=== PATIENT | female | born 1960 | race American Indian/Alaskan Native ===

== ENCOUNTER 2017-11-08 11:00 | Emergency (ER) | payer MEDICARE, MEDICAID ==
[~2017-11-08] VITALS: Ht 162.6 cm; Wt 71.9 kg
[~2017-11-08 11:00] MED LIST: ATOR40TA3 PO; DEXLANT; DOCU-264 PO; GABA-532 PO; LANTUS SUBCUT; RIVA20TA PO
[2017-11-08 11:12] VITALS: BP 115/86
== END 2017-11-08 13:15 | disposition left against medical advice (07) ==
LOC: ER 11:00
DX: R79.9 Abnormal finding of blood chemistry, unspecified (principal); Z53.21 Procedure and treatment not carried out due to patient leaving prior to being seen by health care provider

== ENCOUNTER 2018-09-20 15:13 | Emergency (ER) | payer MEDICARE, MEDICAID ==
[~2018-09-20] VITALS: Ht 160 cm; Wt 72.7 kg
[2018-09-20] MEDS ORDERED: HYDROcodone/acetaminophen 5mg/325mg tablet PO ONE (15:25)
[2018-09-20 16:20] VITALS: BP 146/70
[2018-09-20] MEDS ORDERED: CYCL-1 PO (16:25)
[2018-09-20] MEDS ORDERED: ACET-3067 PO (16:25)
--- NOTE | 2018-09-20 16:30 | NUR ---
Trauma cleared by Dr. Oseguera.
== END 2018-09-20 16:40 | disposition home or self-care (01) ==
LOC: ER 15:14
DX: S13.4XXA Sprain of ligaments of cervical spine, initial encounter (principal); S60.221A Contusion of right hand, initial encounter; S00.81XA Abrasion of other part of head, initial encounter; I25.10 Atherosclerotic heart disease of native coronary artery without angina pectoris; E78.00 Pure hypercholesterolemia, unspecified; K21.9 Gastro-esophageal reflux disease without esophagitis; E11.42 Type 2 diabetes mellitus with diabetic polyneuropathy; I12.9 Hypertensive chronic kidney disease with stage 1 through stage 4 chronic kidney disease, or unspecified chronic kidney disease; E11.22 Type 2 diabetes mellitus with diabetic chronic kidney disease; N18.9 Chronic kidney disease, unspecified; Z86.718 Personal history of other venous thrombosis and embolism; Z56.0 Unemployment, unspecified; Z90.49 Acquired absence of other specified parts of digestive tract; Z95.1 Presence of aortocoronary bypass graft; Z90.710 Acquired absence of both cervix and uterus; Z79.899 Other long term (current) drug therapy; Z79.4 Long term (current) use of insulin; Z79.01 Long term (current) use of anticoagulants; W18.49XA Other slipping, tripping and stumbling without falling, initial encounter; Y93.89 Activity, other specified; Y92.89 Other specified places as the place of occurrence of the external cause; Y99.9 Unspecified external cause status
CPT/HCPCS: 70450; 70486; 72125; 73130; 82948; 99284

== ENCOUNTER 2018-11-03 14:57 | Emergency (ER) | payer MEDICARE, MEDICAID ==
[~2018-11-03] VITALS: Ht 162.6 cm; Wt 72.0 kg
[~2018-11-03 14:57] MED LIST changes: -ATOR40TA3 PO; +ATOR40TA7 PO; +CYCL-1 PO
[2018-11-03 15:45] LABS: BASOPHILS % (AUTO) 0.3 % (0-1); EOSINOPHILS # (AUTO) 0.1 X10'3 (0-0.9); EOSINOPHILS % (AUTO) 1.6 % (0-6); HEMATOCRIT 34.3 % (35.0-45.0); HEMOGLOBIN 11.9 g/dl (12.0-16.0); LYMPHOCYTES # (AUTO) 1.3 X10'3 (1.1-4.8); LYMPHOCYTES % (AUTO) 14.7 % (21-51); MEAN CORPUSCULAR HEMOGLOBIN 32.5 PG (27.0-31.0); MEAN CORPUSCULAR HGB CONC 34.8 g/dL (33.0-36.5); MEAN CORPUSCULAR VOLUME 93.3 FL (78-98); MEAN PLATELET VOLUME 7.1 FL (7.4-10.4); MONOCYTES # (AUTO) 0.4 X10'3 (0-0.9); MONOCYTES % (AUTO) 4.5 % (2-12); NEUTROPHILS # (AUTO) 6.9 X10'3 (1.8-7.7); NEUTROPHILS % (AUTO) 78.9 % (42-75); PLATELET COUNT 209 X10'3 (140-440); RED BLOOD COUNT 3.68 X10'6 (4.20-5.60); RED CELL DISTRIBUTION WIDTH 14.3 % (11.5-14.5); WHITE BLOOD COUNT 8.8 X10'3 (4.5-11.0)
[2018-11-03 15:59] LABS: ALANINE AMINOTRANSFERASE 27 U/L (12-78); ALBUMIN 3.5 G/DL (3.4-5.0); ALKALINE PHOSPHATASE 90 IU/L (46-116); ANION GAP 5 (8-16); ASPARTATE AMINO TRANSFERASE 17 U/L (10-37); BILIRUBIN,TOTAL 0.2 MG/DL (0.1-1.0); BLOOD UREA NITROGEN 25 MG/DL (7-18); BUN/CREATININE RATIO 21.2 (6.6-38.0); CALCIUM 9.2 MG/DL (8.5-10.1); CHLORIDE 104 MMOL/L (99-107); CREATININE 1.18 MG/DL (0.40-0.90); GLUCOSE 234 MG/DL (70-104); POTASSIUM 3.7 MMOL/L (3.5-5.1); SODIUM 138 MMOL/L (135-145); TOTAL CARBON DIOXIDE 29.5 MMOL/L (24-32); TOTAL PROTEIN 6.9 G/DL (6.4-8.2); eGFR 47 ML/MIN
[2018-11-03] MEDS ORDERED: normal saline 1000ML IV soln IVB ONE (16:10)
[2018-11-03 16:12] LABS: PARTIAL THROMBOPLASTIN TIME 30 SECONDS (22-32)
[2018-11-03 17:07] LABS: CLARITY,URINE CLEAR (Clear); COLOR,URINE YELLOW (Yellow); GLUCOSE, URINE NEGATIVE (Neg); KETONES,URINE TRACE mg/dl (Neg); LEUKOCYTE ESTERASE ,URINE NEGATIVE (Neg); NITRITES, URINE NEGATIVE (Neg); OCCULT BLOOD,URINE NEGATIVE (Neg); PROTEIN,URINE TRACE mg/dl (Neg); UROBILINOGEN,URINE 0.2 E.U/dL (0.2-1.0)
[2018-11-03 17:10] LABS: UA COLLECTION TYPE CLN CATCH MIDSTREAM
[2018-11-03 17:15] LABS: BACTERIA,URINE FEW /HPF (Neg); MUCUS STRANDS MODERATE /LPF (Neg); RBC,URINE NONE SEEN /HPF (0-2); SQUAMOUS EPITHELIAL CELL,UR FEW /LPF (FEW); WBC,URINE 0-4 /HPF (0-4)
--- NOTE | 2018-11-03 18:05 | NUR ---
Pt ambulated around ED with no c/o MD leidy aware. Pt states feels good -better than she did prior to arrival and ready to go home
[2018-11-03 18:18] VITALS: BP 154/63
== END 2018-11-03 18:20 | disposition home or self-care (01) ==
LOC: ER 14:58
DX: R42 Dizziness and giddiness (principal); R53.1 Weakness; I12.9 Hypertensive chronic kidney disease with stage 1 through stage 4 chronic kidney disease, or unspecified chronic kidney disease; E11.22 Type 2 diabetes mellitus with diabetic chronic kidney disease; N18.9 Chronic kidney disease, unspecified; E11.40 Type 2 diabetes mellitus with diabetic neuropathy, unspecified; I25.10 Atherosclerotic heart disease of native coronary artery without angina pectoris; E78.00 Pure hypercholesterolemia, unspecified; K21.9 Gastro-esophageal reflux disease without esophagitis; Z79.4 Long term (current) use of insulin; Z86.718 Personal history of other venous thrombosis and embolism; Z90.49 Acquired absence of other specified parts of digestive tract; Z95.1 Presence of aortocoronary bypass graft; Z90.710 Acquired absence of both cervix and uterus; Z56.0 Unemployment, unspecified
CPT/HCPCS: 36415; 71045; 80053; 81001; 84484; 85025; 85610; 85730; 93005; 96360; 99284; J7030

== ENCOUNTER 2019-06-15 16:15 | Emergency (ER) | payer MEDICARE, MEDICAID ==
[~2019-06-15] VITALS: Ht 165.1 cm; Wt 89.8 kg
[2019-06-15 17:00] VITALS: BP 156/86
[2019-06-15] MEDS ORDERED: acetaminophen 325mg tablet PO ONE (17:05)
== END 2019-06-15 17:22 | disposition home or self-care (01) ==
LOC: ER 16:16
DX: S00.03XA Contusion of scalp, initial encounter (principal); I25.10 Atherosclerotic heart disease of native coronary artery without angina pectoris; E78.00 Pure hypercholesterolemia, unspecified; K21.9 Gastro-esophageal reflux disease without esophagitis; I12.9 Hypertensive chronic kidney disease with stage 1 through stage 4 chronic kidney disease, or unspecified chronic kidney disease; E11.22 Type 2 diabetes mellitus with diabetic chronic kidney disease; N18.9 Chronic kidney disease, unspecified; E11.42 Type 2 diabetes mellitus with diabetic polyneuropathy; Z56.0 Unemployment, unspecified; Z90.49 Acquired absence of other specified parts of digestive tract; Z95.1 Presence of aortocoronary bypass graft; Z90.710 Acquired absence of both cervix and uterus; Z98.890 Other specified postprocedural states; Z86.718 Personal history of other venous thrombosis and embolism; Z79.899 Other long term (current) drug therapy; Z79.4 Long term (current) use of insulin; Z79.01 Long term (current) use of anticoagulants; W01.198A Fall on same level from slipping, tripping and stumbling with subsequent striking against other object, initial encounter; Y93.89 Activity, other specified; Y92.89 Other specified places as the place of occurrence of the external cause; Y99.9 Unspecified external cause status
CPT/HCPCS: 70450; 72125; 93005; 99284

== ENCOUNTER 2019-06-23 18:08 | Emergency (ER) | payer MEDICARE, MEDICAID ==
[~2019-06-23] VITALS: Ht 165.1 cm; Wt 77.0 kg
[2019-06-23] MEDS ORDERED: ondansetron 4mg rapidly disintigrating tab PO ONE (19:00)
[2019-06-23] MEDS ORDERED: HYDROcodone/acetaminophen 5mg/325mg tablet PO ONE (19:00)
[2019-06-23] MEDS ORDERED: acetaminophen 325mg tablet PO ONE (19:00)
[2019-06-23 20:05] VITALS: BP 147/78
== END 2019-06-23 20:10 | disposition home or self-care (01) ==
LOC: ER 18:09
DX: M25.572 Pain in left ankle and joints of left foot (principal); M25.512 Pain in left shoulder; R20.0 Anesthesia of skin; I25.10 Atherosclerotic heart disease of native coronary artery without angina pectoris; E78.00 Pure hypercholesterolemia, unspecified; K21.9 Gastro-esophageal reflux disease without esophagitis; E11.42 Type 2 diabetes mellitus with diabetic polyneuropathy; I12.9 Hypertensive chronic kidney disease with stage 1 through stage 4 chronic kidney disease, or unspecified chronic kidney disease; E11.22 Type 2 diabetes mellitus with diabetic chronic kidney disease; N18.9 Chronic kidney disease, unspecified; Z86.718 Personal history of other venous thrombosis and embolism; Z90.49 Acquired absence of other specified parts of digestive tract; Z95.1 Presence of aortocoronary bypass graft; Z90.710 Acquired absence of both cervix and uterus; Z56.0 Unemployment, unspecified; Z79.899 Other long term (current) drug therapy; Z79.4 Long term (current) use of insulin; W18.30XA Fall on same level, unspecified, initial encounter; Y93.01 Activity, walking, marching and hiking; Y92.89 Other specified places as the place of occurrence of the external cause; Y99.9 Unspecified external cause status
CPT/HCPCS: 70450; 72125; 73030; 73502; 93005; 99284

== ENCOUNTER 2019-09-08 14:49 | Emergency (ER) | payer MEDICARE, MEDICAID ==
[~2019-09-08] VITALS: Ht 162.6 cm; Wt 75.0 kg
[2019-09-08 14:50] VITALS: BP 178/88
[2019-09-08] MEDS ORDERED: mupirocin 2% ointment 22GM TP STA (16:03)
== END 2019-09-08 16:23 | disposition home or self-care (01) ==
LOC: ER 14:49
DX: L70.0 Acne vulgaris (principal); E11.42 Type 2 diabetes mellitus with diabetic polyneuropathy; I25.10 Atherosclerotic heart disease of native coronary artery without angina pectoris; E78.00 Pure hypercholesterolemia, unspecified; I12.9 Hypertensive chronic kidney disease with stage 1 through stage 4 chronic kidney disease, or unspecified chronic kidney disease; K21.9 Gastro-esophageal reflux disease without esophagitis; N18.9 Chronic kidney disease, unspecified; E11.22 Type 2 diabetes mellitus with diabetic chronic kidney disease; Z86.718 Personal history of other venous thrombosis and embolism; Z90.49 Acquired absence of other specified parts of digestive tract; Z95.1 Presence of aortocoronary bypass graft; Z90.710 Acquired absence of both cervix and uterus; Z79.4 Long term (current) use of insulin; Z79.01 Long term (current) use of anticoagulants; Z79.899 Other long term (current) drug therapy
CPT/HCPCS: 99283

== ENCOUNTER 2019-11-29 17:12 | Emergency (ER) | payer MEDICARE, MEDICAID ==
[~2019-11-29] VITALS: Ht 165.1 cm; Wt 74.1 kg
[2019-11-29 17:15] VITALS: BP 121/58
== END 2019-11-29 18:07 | disposition home or self-care (01) ==
LOC: ER 17:13
DX: M79.605 Pain in left leg (principal); E11.42 Type 2 diabetes mellitus with diabetic polyneuropathy; E78.00 Pure hypercholesterolemia, unspecified; I12.9 Hypertensive chronic kidney disease with stage 1 through stage 4 chronic kidney disease, or unspecified chronic kidney disease; E11.22 Type 2 diabetes mellitus with diabetic chronic kidney disease; N18.9 Chronic kidney disease, unspecified; K21.9 Gastro-esophageal reflux disease without esophagitis; Z87.440 Personal history of urinary (tract) infections; Z86.718 Personal history of other venous thrombosis and embolism; Z90.89 Acquired absence of other organs; Z90.49 Acquired absence of other specified parts of digestive tract; Z90.710 Acquired absence of both cervix and uterus; Z98.890 Other specified postprocedural states; Z56.0 Unemployment, unspecified; Z79.4 Long term (current) use of insulin; Z79.899 Other long term (current) drug therapy
CPT/HCPCS: 99284

== ENCOUNTER 2019-12-20 12:54 | Emergency (ER) | payer MEDICARE, MEDICAID ==
[~2019-12-20] VITALS: Ht 165.1 cm; Wt 72.6 kg
[2019-12-20] MEDS ORDERED: acetaminophen 325mg tablet PO STA (14:28)
--- NOTE | 2019-12-20 14:29 | NUR ---
requesting tylenol for posterior headache,obtained verbal order from Freddie GALVAN.
[2019-12-20 14:33] VITALS: BP 134/72
== END 2019-12-20 14:38 | disposition home or self-care (01) ==
LOC: ER 12:55
DX: S06.0X0A Concussion without loss of consciousness, initial encounter (principal); R51 Headache; E11.42 Type 2 diabetes mellitus with diabetic polyneuropathy; I25.10 Atherosclerotic heart disease of native coronary artery without angina pectoris; E78.00 Pure hypercholesterolemia, unspecified; K21.9 Gastro-esophageal reflux disease without esophagitis; I12.9 Hypertensive chronic kidney disease with stage 1 through stage 4 chronic kidney disease, or unspecified chronic kidney disease; E11.22 Type 2 diabetes mellitus with diabetic chronic kidney disease; N18.9 Chronic kidney disease, unspecified; Z87.440 Personal history of urinary (tract) infections; Z86.718 Personal history of other venous thrombosis and embolism; Z90.49 Acquired absence of other specified parts of digestive tract; Z90.89 Acquired absence of other organs; Z90.710 Acquired absence of both cervix and uterus; Z98.890 Other specified postprocedural states; Z56.0 Unemployment, unspecified; Z79.82 Long term (current) use of aspirin; Z79.899 Other long term (current) drug therapy; W18.39XA Other fall on same level, initial encounter; Y93.89 Activity, other specified; Y92.89 Other specified places as the place of occurrence of the external cause; Y99.8 Other external cause status
CPT/HCPCS: 70450; 72125; 99284; 99285

== ENCOUNTER 2020-01-08 16:54 | Emergency (ER) | payer MEDICARE, MEDICAID ==
[~2020-01-08] VITALS: Ht 165.1 cm; Wt 76.2 kg
[2020-01-08 16:56] VITALS: BP 124/67
[2020-01-08] MEDS ORDERED: DICL100G15 TOP (18:45)
== END 2020-01-08 19:11 | disposition home or self-care (01) ==
LOC: ER 16:54
DX: M79.604 Pain in right leg (principal); E11.42 Type 2 diabetes mellitus with diabetic polyneuropathy; I25.10 Atherosclerotic heart disease of native coronary artery without angina pectoris; E78.00 Pure hypercholesterolemia, unspecified; I12.9 Hypertensive chronic kidney disease with stage 1 through stage 4 chronic kidney disease, or unspecified chronic kidney disease; K21.9 Gastro-esophageal reflux disease without esophagitis; N18.9 Chronic kidney disease, unspecified; Z86.718 Personal history of other venous thrombosis and embolism; Z90.49 Acquired absence of other specified parts of digestive tract; Z95.1 Presence of aortocoronary bypass graft; Z90.710 Acquired absence of both cervix and uterus; Z98.890 Other specified postprocedural states; Z79.4 Long term (current) use of insulin; Z79.01 Long term (current) use of anticoagulants
CPT/HCPCS: 73630; 99283

== ENCOUNTER 2020-06-06 13:37 | Emergency (ER) | payer MEDICARE, MEDICAID ==
[~2020-06-06] VITALS: Ht 162.6 cm; Wt 72.7 kg
[~2020-06-06 13:37] MED LIST changes: +DICL100G15 TOP
[2020-06-06 13:40] VITALS: BP 120/58
--- NOTE | 2020-06-06 13:49 | NUR ---
PER DR GORGE COLBY FOR TRAUM LEVEL 3.
== END 2020-06-06 16:10 | disposition left against medical advice (07) ==
LOC: ER 13:38
DX: R51.9 Headache, unspecified (principal); Z53.21 Procedure and treatment not carried out due to patient leaving prior to being seen by health care provider
CPT/HCPCS: 99281

== ENCOUNTER 2020-07-02 09:56 | Emergency (ER) | payer MEDICARE, MEDICAID ==
[~2020-07-02] VITALS: Ht 162.6 cm; Wt 75.0 kg
[2020-07-02] MEDS ORDERED: acetaminophen 325mg tablet PO ONE (10:15)
[2020-07-02] MEDS ORDERED: acetaminophen w/codeine (30MG) #3 tablet PO ONE (10:15)
[2020-07-02 11:02] VITALS: BP 149/73
== END 2020-07-02 10:15 | disposition home or self-care (01) ==
LOC: ER 09:57
DX: S09.90XA Unspecified injury of head, initial encounter (principal); E11.42 Type 2 diabetes mellitus with diabetic polyneuropathy; I25.10 Atherosclerotic heart disease of native coronary artery without angina pectoris; E78.00 Pure hypercholesterolemia, unspecified; K21.9 Gastro-esophageal reflux disease without esophagitis; I12.9 Hypertensive chronic kidney disease with stage 1 through stage 4 chronic kidney disease, or unspecified chronic kidney disease; E11.22 Type 2 diabetes mellitus with diabetic chronic kidney disease; N18.9 Chronic kidney disease, unspecified; Z87.440 Personal history of urinary (tract) infections; Z86.718 Personal history of other venous thrombosis and embolism; Z90.89 Acquired absence of other organs; Z90.49 Acquired absence of other specified parts of digestive tract; Z90.710 Acquired absence of both cervix and uterus; Z98.890 Other specified postprocedural states; Z56.0 Unemployment, unspecified; Z79.4 Long term (current) use of insulin; Z79.899 Other long term (current) drug therapy; W18.39XA Other fall on same level, initial encounter; Y93.89 Activity, other specified; Y92.89 Other specified places as the place of occurrence of the external cause; Y99.8 Other external cause status
CPT/HCPCS: 70450; 72125; 99285

== ENCOUNTER 2020-11-09 16:22 | Emergency (ER) | payer MEDICARE, MEDICAID ==
[~2020-11-09] VITALS: Ht 165.1 cm; Wt 79.1 kg
[2020-11-09 16:35] VITALS: BP 140/70
[2020-11-09] MEDS ORDERED: acetaminophen 325mg tablet PO ONE (18:50)
== END 2020-11-10 04:05 | disposition home or self-care (01) ==
LOC: ER 16:23
DX: M25.532 Pain in left wrist (principal); M25.561 Pain in right knee; M25.551 Pain in right hip; R60.9 Edema, unspecified; Z79.4 Long term (current) use of insulin; Z79.899 Other long term (current) drug therapy; I25.10 Atherosclerotic heart disease of native coronary artery without angina pectoris; E78.00 Pure hypercholesterolemia, unspecified; I10 Essential (primary) hypertension; E11.22 Type 2 diabetes mellitus with diabetic chronic kidney disease; I12.9 Hypertensive chronic kidney disease with stage 1 through stage 4 chronic kidney disease, or unspecified chronic kidney disease; N18.9 Chronic kidney disease, unspecified; K21.9 Gastro-esophageal reflux disease without esophagitis; E11.42 Type 2 diabetes mellitus with diabetic polyneuropathy; Z86.718 Personal history of other venous thrombosis and embolism; Z90.49 Acquired absence of other specified parts of digestive tract; Z90.710 Acquired absence of both cervix and uterus; Z95.5 Presence of coronary angioplasty implant and graft; Z56.0 Unemployment, unspecified
CPT/HCPCS: 73110; 73502; 73564; 99284

== ENCOUNTER 2021-07-06 16:03 | Inpatient (IN) | payer MEDICARE, MEDICAID ==
[~2021-07-06] VITALS: Ht 167.6 cm; Wt 86.4 kg
[~2021-07-06 16:03] MED LIST changes: -DOCU-264 PO; +DOCU-323 PO
--- NOTE | 2021-07-06 19:42 | NUR ---
Resting on candi waiting for MD coughlin.
--- NOTE | 2021-07-06 19:57 | NUR ---
Patient to xray
--- NOTE | 2021-07-06 20:11 | NUR ---
Back from xray.
[2021-07-06] MEDS ORDERED: HYDROcodone/acetaminophen 5mg/325mg tablet PO ONE (20:15)
[2021-07-06] MEDS ORDERED: temazepam 15mg capsule PO PRN (21:00)
--- NOTE | 2021-07-06 21:09 | NUR ---
Patient advised she takes Xarelto and I told the PA
[2021-07-06] MEDS ORDERED: insulin glargine (Lantus) pen - multi-dose SQ ONE (23:00)
--- NOTE | 2021-07-06 23:24 | NUR ---
Patient to CT
[2021-07-06 23:28] LABS: BASOPHILS # (AUTO) 0.1 X10'3 (0-0.2); EOSINOPHILS % (AUTO) 0.3 % (0-6); HEMATOCRIT 30.6 % (35.0-45.0); HEMOGLOBIN 10.6 g/dl (12.0-16.0); LYMPHOCYTES # (AUTO) 1.2 X10'3 (1.1-4.8); LYMPHOCYTES % (AUTO) 23.2 % (21-51); MEAN CORPUSCULAR HGB CONC 34.7 g/dL (33.0-36.5); MEAN CORPUSCULAR VOLUME 92.3 FL (78-98); MEAN PLATELET VOLUME 6.8 FL (7.4-10.4); MONOCYTES # (AUTO) 0.4 X10'3 (0-0.9); MONOCYTES % (AUTO) 7.4 % (2-12); NEUTROPHILS # (AUTO) 3.5 X10'3 (1.8-7.7); NEUTROPHILS % (AUTO) 68.1 % (42-75); PLATELET COUNT 191 X10'3 (140-440); RED BLOOD COUNT 3.32 X10'6 (4.20-5.60); RED CELL DISTRIBUTION WIDTH 14.5 % (11.5-14.5); WHITE BLOOD COUNT 5.1 X10'3 (4.5-11.0)
[2021-07-06 23:33] LABS: ALBUMIN 3.3 G/DL (3.4-5.0); ANION GAP 3 (8-16); BLOOD UREA NITROGEN 20 MG/DL (7-18); CALCIUM 9.2 MG/DL (8.5-10.1); CHLORIDE 99 MMOL/L (99-107); CREATININE 1.11 MG/DL (0.40-0.90); GLUCOSE 189 MG/DL (70-104); POTASSIUM 3.5 MMOL/L (3.5-5.1); SODIUM 132 MMOL/L (135-145); TOTAL CARBON DIOXIDE 29.9 MMOL/L (24-32); eGFR 50 ML/MIN
[2021-07-06 23:37] LABS: APTT 27 SECONDS (22-32)
[2021-07-06] MEDS ORDERED: bisacodyl 10mg suppository rectal RC PRN (23:45)
[2021-07-06] MEDS ORDERED: diphenhydrAMINE 50 mg/ml inj IV PRN (23:45)
[2021-07-06] MEDS ORDERED: morphine 2 MG/ML inj. syringe IV PRN ×2 (23:45)
[2021-07-06] MEDS ORDERED: mag hydrox/Alum hydrox/simeth 30ml oral suspension PO PRN (23:45)
[2021-07-06] MEDS ORDERED: metoclopramide 5 mg/ml inj IV PRN (23:45)
[2021-07-06] MEDS ORDERED: acetaminophen 650mg rectal suppository RC PRN (23:45)
[2021-07-06] MEDS ORDERED: HYDROmorphone inj. 0.5 MG/0.5 ML DISP.SYRIN IV PRN (23:45)
[2021-07-06] MEDS ORDERED: HYDROcodone/acetaminophen 5mg/325mg tablet PO PRN (23:45)
[2021-07-06] MEDS ORDERED: diphenhydrAMINE 25mg capsule PO PRN (23:45)
[2021-07-06] MEDS ORDERED: acetaminophen 325mg tablet PO PRN ×2 (23:45)
[2021-07-06] MEDS ORDERED: ondansetron/PF 4mg/2ml inj IV PRN (23:45)
[2021-07-06] MEDS ORDERED: magnesium hydroxide 30ml (MOM) UD suspension PO PRN (23:45)
[2021-07-07] MEDS ORDERED: dextrose ORAL solution 15 GM/59 ML bottle PO PRN ×2
[2021-07-07] MEDS ORDERED: dextrose 50%-water 50ml dispensing syringe IV PRN ×2
[2021-07-07] MEDS ORDERED: MESSAGE TO PHARMACY PO ONE
[2021-07-07] MEDS ORDERED: glucagon, human recombinant 1mg kit SUBCUT PRN
[2021-07-07] MEDS ORDERED: ALBUTEROL INHALER 1 PUFF/90 MCG INHALER IH PRN (00:05)
[2021-07-07 00:15] LABS: HEMOGLOBIN A1C 8.2 % (4.5-6.2)
[2021-07-07 00:20] LABS: MAGNESIUM 1.7 MG/DL (1.5-2.4); PHOSPHORUS 2.5 MG/DL (2.3-4.5)
[2021-07-07 01:30] VITALS: BP 160/86
--- NOTE | 2021-07-07 01:30 | NUR ---
Received pt from ER. States 8/10 pain but refusing pain meds at this time. Says she doesn't want to take too many with her poor kidney function. Said she will use the call light when she is ready for them.
[2021-07-07] MEDS: normal saline 1000ml 1,000 ML IV SCH ×3 (01:41→19:38)
[2021-07-07] MEDS: HYDROcodone/acetaminophen 10/325mg tab PO PRN ×2 (04:15→10:58)
[2021-07-07 06:00] VITALS: BP 120/50
--- NOTE | 2021-07-07 06:25 | NUR ---
Patient in room ORTHO 4006. I have received report from JEN Kiser and had the opportunity to ask questions and assume patient care.
[2021-07-07] MEDS: docusate sod 100mg capsule PO SCH ×2 (07:09→19:38)
[2021-07-07] MEDS: pantoprazole 40MG/NS 100ML BAG 100 ML IV SCH (07:09)
[2021-07-07 08:45] LABS: BASOPHILS % (AUTO) 0.2 % (0-1); EOSINOPHILS % (AUTO) 0.9 % (0-6); HEMOGLOBIN 9.8 g/dl (12.0-16.0); LYMPHOCYTES % (AUTO) 23.3 % (21-51); MEAN CORPUSCULAR HEMOGLOBIN 31.6 PG (27.0-31.0); MEAN CORPUSCULAR HGB CONC 33.8 g/dL (33.0-36.5); MEAN CORPUSCULAR VOLUME 93.6 FL (78-98); MEAN PLATELET VOLUME 7.3 FL (7.4-10.4); MONOCYTES # (AUTO) 0.4 X10'3 (0-0.9); NEUTROPHILS # (AUTO) 2.9 X10'3 (1.8-7.7); NEUTROPHILS % (AUTO) 66.6 % (42-75); PLATELET COUNT 176 X10'3 (140-440); RED CELL DISTRIBUTION WIDTH 14.2 % (11.5-14.5); WHITE BLOOD COUNT 4.4 X10'3 (4.5-11.0)
[2021-07-07 09:16] LABS: ALANINE AMINOTRANSFERASE 17 U/L (12-78); ALBUMIN 3.1 G/DL (3.4-5.0); ALKALINE PHOSPHATASE 76 IU/L (46-116); ANION GAP 8 (8-16); ASPARTATE AMINO TRANSFERASE 17 U/L (10-37); BILIRUBIN,TOTAL 0.3 MG/DL (0.1-1.0); BLOOD UREA NITROGEN 18 MG/DL (7-18); BUN/CREATININE RATIO 17.1 (6.6-38.0); CALCIUM 8.7 MG/DL (8.5-10.1); CHLORIDE 103 MMOL/L (99-107); CHOL/HDL RATIO 1.9 (0.00-4.99); CHOLESTEROL 93 MG/DL (0-200); CREATININE 1.05 MG/DL (0.40-0.90); GLUCOSE 136 MG/DL (70-104); HDL CHOLESTEROL 50 MG/DL (35-60); LDL CHOLESTEROL 32 MG/DL (50-100); POTASSIUM 3.8 MMOL/L (3.5-5.1); SODIUM 139 MMOL/L (135-145); TOTAL CARBON DIOXIDE 28.4 MMOL/L (24-32); TOTAL PROTEIN 6.2 G/DL (6.4-8.2); TRIGLYCERIDES 89 MG/DL (20-135); eGFR 53 ML/MIN
[2021-07-07 10:00] VITALS: BP 154/64
--- NOTE | 2021-07-07 11:38 | NUR ---
DM Consult: Pt hx T2DM A1C 8.2% this admit DX COVID-19 and L knee tibial plateau fracture s/p fall per EMR. Noted pt takes Lantus 50 units HS per MD note though reports takes metformin and tradjenta as well per EMR. RD attempted to contact pt via TC however no answer. Written DM ed w/ RD contact information mailed to pt home address in EMR. Addendum: 07/07/21 at [address] Amended: Links added.
[2021-07-07] MEDS ORDERED: LISI5TAB22 PO (12:08)
[2021-07-07] MEDS ORDERED: CILO100T PO (12:08)
[2021-07-07] MEDS ORDERED: ATOR20TA66 PO (12:08)
[2021-07-07] MEDS ORDERED: LINA5TAB4 PO (12:08)
[2021-07-07] MEDS ORDERED: METF-436 PO (12:08)
[2021-07-07] MEDS ORDERED: INSU100I31 SQ (12:08)
[2021-07-07] MEDS ORDERED: GABA300C PO (12:08)
--- NOTE | 2021-07-07 13:10 | NUR ---
Dr. Oconnor advised that Dr. Keaton Carrasquillo will consult on pt, [facility]
[2021-07-07 14:00] VITALS: BP 153/68
[2021-07-07] MEDS ORDERED: iohexol 300mg/ml 100ml inj. ONE (17:35)
--- NOTE | 2021-07-07 18:17 | NUR ---
Problems reprioritized. Patient report given, questions answered & plan of care reviewed with JEN Toure.
[2021-07-07 19:15] VITALS: BP 159/36
[2021-07-07] MEDS: MESSAGE TO NURSING PO SCH (19:35)
[2021-07-07] MEDS: gabapentin 300mg capsule PO SCH (19:37)
[2021-07-07] MEDS: cilostazol 50mg tablet PO SCH (19:38)
[2021-07-07] MEDS: insulin glargine (Lantus) pen - multi-dose SQ SCH (21:10)
[2021-07-07 22:00] VITALS: BP 152/68
[2021-07-08 02:00] VITALS: BP 136/72
[2021-07-08] MEDS: HYDROcodone/acetaminophen 10/325mg tab PO PRN ×2 (05:07→11:34)
[2021-07-08 06:00] VITALS: BP 148/52
--- NOTE | 2021-07-08 06:30 | NUR ---
received report from christa, rn
[2021-07-08] MEDS: pantoprazole 40MG/NS 100ML BAG 100 ML IV SCH (07:17)
[2021-07-08] MEDS: gabapentin 300mg capsule PO SCH ×2 (07:20→19:05)
[2021-07-08] MEDS: atorvastatin 20mg tablet PO SCH (07:21)
[2021-07-08] MEDS: docusate sod 100mg capsule PO SCH ×2 (07:21→19:05)
[2021-07-08] MEDS: lisinopril 5mg tablet PO SCH (07:23)
[2021-07-08] MEDS: cilostazol 50mg tablet PO SCH ×2 (07:23→19:05)
[2021-07-08] MEDS: normal saline 1000ml 1,000 ML IV SCH (07:24)
[2021-07-08 09:01] LABS: BASOPHILS % (AUTO) 0.2 % (0-1); EOSINOPHILS # (AUTO) 0.1 X10'3 (0-0.9); EOSINOPHILS % (AUTO) 2.1 % (0-6); HEMATOCRIT 27.2 % (35.0-45.0); LYMPHOCYTES # (AUTO) 0.9 X10'3 (1.1-4.8); LYMPHOCYTES % (AUTO) 21.7 % (21-51); MEAN CORPUSCULAR HEMOGLOBIN 31.4 PG (27.0-31.0); MEAN CORPUSCULAR HGB CONC 33.3 g/dL (33.0-36.5); MEAN CORPUSCULAR VOLUME 94.3 FL (78-98); MEAN PLATELET VOLUME 7.4 FL (7.4-10.4); MONOCYTES # (AUTO) 0.3 X10'3 (0-0.9); MONOCYTES % (AUTO) 6.8 % (2-12); NEUTROPHILS # (AUTO) 2.7 X10'3 (1.8-7.7); NEUTROPHILS % (AUTO) 69.2 % (42-75); PLATELET COUNT 160 X10'3 (140-440); RED BLOOD COUNT 2.88 X10'6 (4.20-5.60); RED CELL DISTRIBUTION WIDTH 14.4 % (11.5-14.5); WHITE BLOOD COUNT 3.9 X10'3 (4.5-11.0)
[2021-07-08 09:24] LABS: ALANINE AMINOTRANSFERASE 16 U/L (12-78); ALBUMIN 2.7 G/DL (3.4-5.0); ALBUMIN/GLOBULIN RATIO 0.8 (1.1-1.5); ANION GAP 5 (8-16); ASPARTATE AMINO TRANSFERASE 16 U/L (10-37); BILIRUBIN,TOTAL 0.3 MG/DL (0.1-1.0); BLOOD UREA NITROGEN 19 MG/DL (7-18); BUN/CREATININE RATIO 20.9 (6.6-38.0); CALCIUM 8.4 MG/DL (8.5-10.1); CHLORIDE 106 MMOL/L (99-107); CREATININE 0.91 MG/DL (0.40-0.90); GLUCOSE 132 MG/DL (70-104); SODIUM 141 MMOL/L (135-145); TOTAL CARBON DIOXIDE 29.6 MMOL/L (24-32); TOTAL PROTEIN 5.9 G/DL (6.4-8.2); eGFR 63 ML/MIN
[2021-07-08 09:37] LABS: ALKALINE PHOSPHATASE 70 IU/L (46-116)
[2021-07-08] MEDS: MESSAGE TO NURSING PO SCH (10:00)
[2021-07-08 11:00] VITALS: BP 104/44
[2021-07-08 14:00] VITALS: BP 114/44
--- NOTE | 2021-07-08 14:43 | NUR ---
sent a page earlier to orthopedic cast specialist about fitting pt for leg brace spoke w/physical therapy and physical therapy recommended a hinge brace instead of an immobilizer also physical therapy said that they do not know if orthopedic cast specialist will come to covid floor and physical therapy does not know if there is an orthopedic cast specialist on at this time
[2021-07-08 18:00] VITALS: BP 135/50
[2021-07-08] MEDS ORDERED: rivaroxaban 20mg tablet PO SCH (18:00)
--- NOTE | 2021-07-08 18:05 | NUR ---
gave report to elissa carrillo
[2021-07-08] MEDS: insulin Lispro (HumaLOG) vial - multi-dose SQ SCH (19:03)
[2021-07-08] MEDS: insulin glargine (Lantus) pen - multi-dose SQ SCH (21:32)
[2021-07-08 22:00] VITALS: BP 135/54
[2021-07-09] MEDS: HYDROcodone/acetaminophen 10/325mg tab PO PRN ×2 (01:53→09:11)
[2021-07-09 02:00] VITALS: BP 126/55
[2021-07-09 06:00] VITALS: BP 123/53
--- NOTE | 2021-07-09 06:35 | NUR ---
Problems reprioritized. Patient report given, questions answered & plan of care reviewed with Kailey LI.
[2021-07-09] MEDS: pantoprazole 40MG/NS 100ML BAG 100 ML IV SCH (07:33)
[2021-07-09] MEDS: docusate sod 100mg capsule PO SCH (07:33)
[2021-07-09] MEDS: atorvastatin 20mg tablet PO SCH (07:33)
[2021-07-09] MEDS: gabapentin 300mg capsule PO SCH (07:35)
[2021-07-09] MEDS: cilostazol 50mg tablet PO SCH (07:36)
[2021-07-09] MEDS: lisinopril 5mg tablet PO SCH (07:37)
[2021-07-09 08:25] LABS: BASOPHILS % (AUTO) 0.2 % (0-1); EOSINOPHILS # (AUTO) 0.1 X10'3 (0-0.9); EOSINOPHILS % (AUTO) 2.3 % (0-6); HEMATOCRIT 25.4 % (35.0-45.0); HEMOGLOBIN 8.6 g/dl (12.0-16.0); LYMPHOCYTES # (AUTO) 1.4 X10'3 (1.1-4.8); LYMPHOCYTES % (AUTO) 34.4 % (21-51); MEAN CORPUSCULAR HEMOGLOBIN 31.7 PG (27.0-31.0); MEAN CORPUSCULAR HGB CONC 33.9 g/dL (33.0-36.5); MEAN CORPUSCULAR VOLUME 93.7 FL (78-98); MONOCYTES # (AUTO) 0.3 X10'3 (0-0.9); MONOCYTES % (AUTO) 7.6 % (2-12); NEUTROPHILS # (AUTO) 2.2 X10'3 (1.8-7.7); NEUTROPHILS % (AUTO) 55.5 % (42-75); PLATELET COUNT 172 X10'3 (140-440); RED BLOOD COUNT 2.71 X10'6 (4.20-5.60); RED CELL DISTRIBUTION WIDTH 14.5 % (11.5-14.5)
[2021-07-09] MEDS: insulin Lispro (HumaLOG) vial - multi-dose SQ SCH ×2 (09:13→13:50)
[2021-07-09 09:48] LABS: ALBUMIN 2.6 G/DL (3.4-5.0); ALBUMIN/GLOBULIN RATIO 0.8 (1.1-1.5); ALKALINE PHOSPHATASE 65 IU/L (46-116); ANION GAP 7 (8-16); ASPARTATE AMINO TRANSFERASE 16 U/L (10-37); BILIRUBIN,TOTAL 0.3 MG/DL (0.1-1.0); BLOOD UREA NITROGEN 19 MG/DL (7-18); BUN/CREATININE RATIO 18.3 (6.6-38.0); CALCIUM 8.3 MG/DL (8.5-10.1); CHLORIDE 107 MMOL/L (99-107); CREATININE 1.04 MG/DL (0.40-0.90); GLUCOSE 101 MG/DL (70-104); POTASSIUM 3.9 MMOL/L (3.5-5.1); SODIUM 142 MMOL/L (135-145); TOTAL CARBON DIOXIDE 28.1 MMOL/L (24-32); eGFR 54 ML/MIN
[2021-07-09 10:00] VITALS: BP 111/47
[2021-07-09] MEDS: MESSAGE TO NURSING PO SCH (10:00)
--- NOTE | 2021-07-09 10:06 | NUR ---
DM consult: Patient's A1c has already been addressed, see prior RD note below. DM Consult: Pt hx T2DM A1C 8.2% this admit DX COVID-19 and L knee tibial plateau fracture s/p fall per EMR. Noted pt takes Lantus 50 units HS per MD note though reports takes metformin and Tradjenta as well per EMR. RD attempted to contact pt via TC however no answer. Written DM ed w/ RD contact information mailed to pt home address in EMR. Addendum: 07/09/21 at [address] Amended: Links added.
[2021-07-09 10:43] LABS: ALANINE AMINOTRANSFERASE 19 U/L (12-78)
[2021-07-09 14:00] VITALS: BP 101/34
--- NOTE | 2021-07-09 14:08 | NUR ---
PAGER ID: [phone] MESSAGE: [id number]. PT says patient can go home with walker. Kailey LI [phone]
[2021-07-09] MEDS ORDERED: HYDR-3965 PO (16:03)
--- NOTE | 2021-07-09 17:45 | NUR ---
Discharge instructions reviewed with patient. Patient says PT explained brace care. Patient free from injuries. IV removed, catheter tip intact. Waiting on transportation.
== END 2021-07-09 17:55 | disposition home or self-care (01) | DRG 562 ==
LOC: ER 16:04 → ED HOLD 07-07 00:02 → ORTHO 4S 07-07 01:09
PROVIDERS: ADMIT Family Medicine; ATTEND Internal Medicine
DX: S82.142A Displaced bicondylar fracture of left tibia, initial encounter for closed fracture (principal); U07.1 COVID-19; M97.12XA Periprosthetic fracture around internal prosthetic left knee joint, initial encounter; N17.9 Acute kidney failure, unspecified; D62 Acute posthemorrhagic anemia; E87.1 Hypo-osmolality and hyponatremia; M25.062 Hemarthrosis, left knee; D84.9 Immunodeficiency, unspecified; S82.252A Displaced comminuted fracture of shaft of left tibia, initial encounter for closed fracture; E11.22 Type 2 diabetes mellitus with diabetic chronic kidney disease; E11.65 Type 2 diabetes mellitus with hyperglycemia; N18.9 Chronic kidney disease, unspecified; E11.42 Type 2 diabetes mellitus with diabetic polyneuropathy; Z96.652 Presence of left artificial knee joint; E11.51 Type 2 diabetes mellitus with diabetic peripheral angiopathy without gangrene; K21.9 Gastro-esophageal reflux disease without esophagitis; G89.4 Chronic pain syndrome; E78.5 Hyperlipidemia, unspecified; R91.1 Solitary pulmonary nodule; I12.9 Hypertensive chronic kidney disease with stage 1 through stage 4 chronic kidney disease, or unspecified chronic kidney disease; E78.00 Pure hypercholesterolemia, unspecified; I25.10 Atherosclerotic heart disease of native coronary artery without angina pectoris; W01.0XXA Fall on same level from slipping, tripping and stumbling without subsequent striking against object, initial encounter; Z56.0 Unemployment, unspecified; Z95.1 Presence of aortocoronary bypass graft; Z90.49 Acquired absence of other specified parts of digestive tract; Z90.710 Acquired absence of both cervix and uterus; Z79.899 Other long term (current) drug therapy; Z86.718 Personal history of other venous thrombosis and embolism; Z79.01 Long term (current) use of anticoagulants; Z87.440 Personal history of urinary (tract) infections; Y93.89 Activity, other specified; Y92.488 Other paved roadways as the place of occurrence of the external cause; Y99.8 Other external cause status; Z79.4 Long term (current) use of insulin
CPT/HCPCS: 36415; 71045; 71260; 73564; 73700; 80048; 80053; 80061; 82948; 83036; 83735; 83880; 84100; 85025; 85610; 85730; 87081; 87635; 94760; 96372; 97116; 97161; 97530; 97760; 99285; C9113; C9803; G0378; J1815; J2270; J2405; J7030; Q9967

== ENCOUNTER 2021-09-04 08:02 | Day surgery (SDC) | payer MEDICARE, MEDICAID ==
[2021-09-04] VITALS (15 sets, daily range): BP systolic 105–158; BP diastolic 50–107
[~2021-09-04] VITALS: Ht 162.6 cm; Wt 80.0 kg
[~2021-09-04 08:02] MED LIST changes: +ATOR20TA66 PO; -ATOR40TA7 PO; +CILO100T PO; -CYCL-1 PO; -DEXLANT; -DICL100G15 TOP; -DOCU-323 PO; -GABA-532 PO; +GABA300C PO; +INSU100I31 SQ; -LANTUS SUBCUT; +LINA5TAB4 PO; +LISI5TAB22 PO; +METF-436 PO
[2021-09-04] MEDS ORDERED: normal saline 1000ml 1,000 ML IV PRN (08:25)
[2021-09-04] MEDS ORDERED: DIPH-186 PO (09:04)
[2021-09-04] MEDS ORDERED: CALC-97 PO (09:05)
[2021-09-04 09:36] LABS: BASOPHILS % (AUTO) 0.2 % (0-1); EOSINOPHILS # (AUTO) 0.1 X10'3 (0-0.9); EOSINOPHILS % (AUTO) 1.2 % (0-6); HEMATOCRIT 30.6 % (35.0-45.0); LYMPHOCYTES # (AUTO) 1.1 X10'3 (1.1-4.8); LYMPHOCYTES % (AUTO) 21.3 % (21-51); MEAN CORPUSCULAR HEMOGLOBIN 30.2 PG (27.0-31.0); MEAN CORPUSCULAR HGB CONC 32.6 g/dL (33.0-36.5); MEAN CORPUSCULAR VOLUME 92.8 FL (78-98); MEAN PLATELET VOLUME 6.7 FL (7.4-10.4); MONOCYTES # (AUTO) 0.3 X10'3 (0-0.9); MONOCYTES % (AUTO) 5.9 % (2-12); NEUTROPHILS # (AUTO) 3.7 X10'3 (1.8-7.7); NEUTROPHILS % (AUTO) 71.4 % (42-75); PLATELET COUNT 230 X10'3 (140-440); RED CELL DISTRIBUTION WIDTH 15.8 % (11.5-14.5); WHITE BLOOD COUNT 5.2 X10'3 (4.5-11.0)
[2021-09-04] MEDS ORDERED: LIDOcaine 1% (10mg/ml) 2ml vial ONE (10:26)
[2021-09-04] MEDS ORDERED: midazolam 1 mg/ML 2ml injection ONE (10:26)
[2021-09-04] MEDS ORDERED: fentaNYL/PF 50MCG/1 ML 2ML syringe ONE (10:26)
[2021-09-04] MEDS ORDERED: gelatin sponge, absorbable (Gelfoam 12-7MM) sponge TP ONE (10:57)
[2021-09-04] MEDS ORDERED: sodium chloride 0.45% 1,000 ML IV SCH (11:05)
[2021-09-04] MEDS ORDERED: HYDROcodone/acetaminophen 5mg/325mg tablet PO PRN ×2 (11:05)
== END 2021-09-04 15:00 | disposition home or self-care (01) ==
LOC: SSTAY O 08:02
PROVIDERS: ATTEND Radiology Vascular & Interventional Radiology
DX: R91.1 Solitary pulmonary nodule (principal); C7A.8 Other malignant neuroendocrine tumors; Z20.822 Contact with and (suspected) exposure to COVID-19; Z79.01 Long term (current) use of anticoagulants; Z79.899 Other long term (current) drug therapy
CPT/HCPCS: 32408; 36415; 71045; 82948; 85025; 85610; 87635; 99152; 99153; C9803; J2250; J3010; J3490; 77012; 88305; 88341; 88342; 88360

== ENCOUNTER 2022-04-06 13:17 | Emergency (ER) | payer MEDICARE, MEDICAID ==
[~2022-04-06] VITALS: Ht 165.1 cm; Wt 81.6 kg
[~2022-04-06 13:17] MED LIST changes: +CALC-97 PO; +DIPH-186 PO; -METF-436 PO
--- NOTE | 2022-04-06 14:19 | NUR ---
Received patient in bed 5.
--- NOTE | 2022-04-06 14:33 | NUR ---
Freddie GALVAN at bedside
[2022-04-06] MEDS ORDERED: acetaminophen 325mg tablet PO ONE (14:35)
[2022-04-06 15:48] VITALS: BP 159/77
== END 2022-04-06 15:51 | disposition home or self-care (01) ==
LOC: ER 13:17
DX: S00.83XA Contusion of other part of head, initial encounter (principal); D68.59 Other primary thrombophilia; W19.XXXA Unspecified fall, initial encounter; Y93.89 Activity, other specified; Y92.89 Other specified places as the place of occurrence of the external cause; Y99.8 Other external cause status
CPT/HCPCS: 70450; 99284

== ENCOUNTER 2023-12-26 10:10 | Emergency (ER) | payer MEDICARE, MEDICAID ==
[~2023-12-26] VITALS: Ht 165.1 cm; Wt 82.0 kg
[~2023-12-26 10:10] MED LIST changes: -CILO100T PO; +CILO100T27 PO; +CLIN-197 PO; +DAPA10TA PO; -DIPH-186 PO; +INSU100I52 SQ; -LINA5TAB4 PO; +MAGN400T56 PO; +METF-438 PO; +METO5TAB98 PO; +PANT40TA54 PO
[2023-12-26 10:11] VITALS: BP 182/86; PULSE 68; RESP 16; TEMP 98.3; O2SAT 98
== END 2023-12-26 13:47 | disposition left against medical advice (07) ==
LOC: ER 10:11
DX: M25.561 Pain in right knee (principal); M79.89 Other specified soft tissue disorders; Z53.21 Procedure and treatment not carried out due to patient leaving prior to being seen by health care provider

== ENCOUNTER 2024-04-23 14:23 | Emergency (ER) | payer MEDICARE, MEDICAID ==
[~2024-04-23] VITALS: Ht 165.1 cm; Wt 76.4 kg
[2024-04-23 14:51] VITALS: BP 155/66; PULSE 91; RESP 18; TEMP 97.8; O2SAT 99
[2024-04-23 15:14] LABS: BASOPHILS % (AUTO) 0.4 % (0-1); EOSINOPHILS # (AUTO) 0.1 X10'3 (0-0.9); EOSINOPHILS % (AUTO) 1.1 % (0-6); HEMATOCRIT 29.5 % (35.0-45.0); HEMOGLOBIN 9.7 g/dl (12.0-16.0); LYMPHOCYTES % (AUTO) 16.4 % (21-51); MEAN CORPUSCULAR HEMOGLOBIN 32.2 PG (27.0-31.0); MEAN CORPUSCULAR HGB CONC 32.7 g/dL (33.0-36.5); MEAN CORPUSCULAR VOLUME 98.5 FL (78-98); MEAN PLATELET VOLUME 6.1 FL (7.4-10.4); MONOCYTES # (AUTO) 0.3 X10'3 (0-0.9); MONOCYTES % (AUTO) 4.4 % (2-12); NEUTROPHILS # (AUTO) 4.5 X10'3 (1.8-7.7); NEUTROPHILS % (AUTO) 77.7 % (42-75); PLATELET COUNT 296 X10'3 (140-440); RED CELL DISTRIBUTION WIDTH 15.8 % (11.5-14.5); WHITE BLOOD COUNT 5.8 X10'3 (4.5-11.0)
[2024-04-23 15:28] LABS: ALANINE AMINOTRANSFERASE 14 U/L (12-78); ALBUMIN 3.2 G/DL (3.4-5.0); ALBUMIN/GLOBULIN RATIO 0.8 (1.1-1.5); ALKALINE PHOSPHATASE 90 IU/L (46-116); ANION GAP 7 (8-16); ASPARTATE AMINO TRANSFERASE 15 U/L (10-37); BILIRUBIN,TOTAL 0.8 MG/DL (0.1-1.0); BLOOD UREA NITROGEN 19 MG/DL (7-18); BUN/CREATININE RATIO 15.2 (10.0-20.0); CALCIUM 9.5 MG/DL (8.5-10.1); CHLORIDE 106 MMOL/L (99-107); CREATININE 1.25 MG/DL (0.40-0.90); GLUCOSE 175 MG/DL (70-104); POTASSIUM 4.1 MMOL/L (3.5-5.1); SODIUM 141 MMOL/L (135-145); TOTAL CARBON DIOXIDE 27.7 MMOL/L (24-32); eCRCL 41 ML/MIN; eGFR 43 ML/MIN
[2024-04-23] MEDS ORDERED: iohexol 350MG/ML 100ml bottle IV ONE (15:58)
== END 2024-04-23 18:14 | disposition home or self-care (01) ==
LOC: ER 14:24
DX: I97.648 Postprocedural seroma of a circulatory system organ or structure following other circulatory system procedure (principal); E11.22 Type 2 diabetes mellitus with diabetic chronic kidney disease; E11.42 Type 2 diabetes mellitus with diabetic polyneuropathy; E11.59 Type 2 diabetes mellitus with other circulatory complications; E78.00 Pure hypercholesterolemia, unspecified; I12.9 Hypertensive chronic kidney disease with stage 1 through stage 4 chronic kidney disease, or unspecified chronic kidney disease; I25.10 Atherosclerotic heart disease of native coronary artery without angina pectoris; K21.9 Gastro-esophageal reflux disease without esophagitis; N18.9 Chronic kidney disease, unspecified; Z86.718 Personal history of other venous thrombosis and embolism; Z87.440 Personal history of urinary (tract) infections; Z90.49 Acquired absence of other specified parts of digestive tract; Z90.710 Acquired absence of both cervix and uterus; Z95.1 Presence of aortocoronary bypass graft; Z79.4 Long term (current) use of insulin
CPT/HCPCS: 36415; 74174; 80053; 85025; 99285; Q9967

== ENCOUNTER 2024-06-26 19:53 | Emergency (ER) | payer MEDICARE, MEDICAID ==
[~2024-06-26] VITALS: Ht 165.1 cm; Wt 75.7 kg
[2024-06-26 19:59] VITALS: BP 135/69; PULSE 84; RESP 18; TEMP 98.4; O2SAT 99
[2024-06-26] MEDS ORDERED: BLOO1EAC70 MC (20:39)
== END 2024-06-26 20:45 | disposition home or self-care (01) ==
LOC: ER 19:53
DX: Z00.8 Encounter for other general examination (principal); E11.22 Type 2 diabetes mellitus with diabetic chronic kidney disease; E11.42 Type 2 diabetes mellitus with diabetic polyneuropathy; E11.59 Type 2 diabetes mellitus with other circulatory complications; E78.00 Pure hypercholesterolemia, unspecified; I12.9 Hypertensive chronic kidney disease with stage 1 through stage 4 chronic kidney disease, or unspecified chronic kidney disease; I25.10 Atherosclerotic heart disease of native coronary artery without angina pectoris; K21.9 Gastro-esophageal reflux disease without esophagitis; N18.9 Chronic kidney disease, unspecified; Z90.49 Acquired absence of other specified parts of digestive tract; Z90.710 Acquired absence of both cervix and uterus; Z95.1 Presence of aortocoronary bypass graft; Z98.890 Other specified postprocedural states
CPT/HCPCS: 82948; 99282; 99283

== ENCOUNTER 2024-09-05 09:00 | Emergency (ER) | payer MEDICARE, MEDICAID ==
[~2024-09-05] VITALS: Ht 165.1 cm; Wt 73.3 kg
[~2024-09-05 09:00] MED LIST changes: +BLOO1EAC70 MC
[2024-09-05 09:28] LABS: BASOPHILS % (AUTO) 0.5 % (0-1); EOSINOPHILS # (AUTO) 0.1 X10'3 (0-0.9); EOSINOPHILS % (AUTO) 1.3 % (0-6); HEMATOCRIT 36.1 % (35.0-45.0); HEMOGLOBIN 11.7 g/dl (12.0-16.0); LYMPHOCYTES # (AUTO) 1.4 X10'3 (1.1-4.8); MEAN CORPUSCULAR HEMOGLOBIN 31.1 PG (27.0-31.0); MEAN CORPUSCULAR HGB CONC 32.3 g/dL (33.0-36.5); MEAN CORPUSCULAR VOLUME 96.2 FL (78-98); MEAN PLATELET VOLUME 7.3 FL (7.4-10.4); MONOCYTES # (AUTO) 0.3 X10'3 (0-0.9); MONOCYTES % (AUTO) 6.9 % (2-12); NEUTROPHILS # (AUTO) 3.1 X10'3 (1.8-7.7); NEUTROPHILS % (AUTO) 62.3 % (42-75); PLATELET COUNT 197 X10'3 (140-440); RED BLOOD COUNT 3.75 X10'6 (4.20-5.60); RED CELL DISTRIBUTION WIDTH 16.7 % (11.5-14.5); WHITE BLOOD COUNT 4.9 X10'3 (4.5-11.0)
[2024-09-05 09:46] LABS: ALANINE AMINOTRANSFERASE 18 U/L (12-78); ALBUMIN 3.5 G/DL (3.4-5.0); ALBUMIN/GLOBULIN RATIO 0.9 (1.1-1.5); ALKALINE PHOSPHATASE 101 IU/L (46-116); ANION GAP 8 (8-16); ASPARTATE AMINO TRANSFERASE 15 U/L (10-37); BILIRUBIN,TOTAL 0.7 MG/DL (0.1-1.0); BLOOD UREA NITROGEN 27 MG/DL (7-18); BUN/CREATININE RATIO 20.6 (10.0-20.0); CHLORIDE 105 MMOL/L (99-107); CREATININE 1.31 MG/DL (0.40-0.90); GLUCOSE 112 MG/DL (70-104); POTASSIUM 4.1 MMOL/L (3.5-5.1); SODIUM 140 MMOL/L (135-145); TOTAL CARBON DIOXIDE 27.4 MMOL/L (24-32); TOTAL PROTEIN 7.6 G/DL (6.4-8.2); eCRCL 39 ML/MIN; eGFR 41 ML/MIN
[2024-09-05 09:53] LABS: PRO BRAIN NATRIURETIC PEPTIDE 215 PG/ML (0-125)
[2024-09-05 12:51] VITALS: BP 121/72; PULSE 63; RESP 16; TEMP 98.9; O2SAT 99
== END 2024-09-05 13:00 | disposition home or self-care (01) ==
LOC: ER 09:00
DX: R07.89 Other chest pain (principal); E11.22 Type 2 diabetes mellitus with diabetic chronic kidney disease; E11.42 Type 2 diabetes mellitus with diabetic polyneuropathy; E11.59 Type 2 diabetes mellitus with other circulatory complications; N18.9 Chronic kidney disease, unspecified; E78.00 Pure hypercholesterolemia, unspecified; I12.9 Hypertensive chronic kidney disease with stage 1 through stage 4 chronic kidney disease, or unspecified chronic kidney disease; I25.10 Atherosclerotic heart disease of native coronary artery without angina pectoris; Z90.710 Acquired absence of both cervix and uterus; Z90.49 Acquired absence of other specified parts of digestive tract; Z95.1 Presence of aortocoronary bypass graft; Z87.440 Personal history of urinary (tract) infections; Z86.718 Personal history of other venous thrombosis and embolism; Z65.3 Problems related to other legal circumstances
CPT/HCPCS: 36415; 71045; 80053; 83880; 84484; 85025; 93005; 99285

== ENCOUNTER 2024-11-20 13:52 | Emergency (ER) | payer MEDICARE, MEDICAID ==
[~2024-11-20] VITALS: Ht 162.6 cm; Wt 70.9 kg
[~2024-11-20 13:52] MED LIST changes: -METF-438 PO; -METO5TAB98 PO
[2024-11-20 14:02] VITALS: TEMP 98.9
--- NOTE | 2024-11-20 14:11 | Physician Documentation ---
History of Present Illness ~ Chief Complaint: Bloody Stools Stated Complaint: "INTESTINES ARE BLEEDING" Time Seen by MD: 15:10 Primary Medical Doctor: Erasto Kenny MD HPI 64-year-old female presents to the ED with a complaint of a dark tarry stools f or the last seven days. She states she has had a history of receiving transfusions. States she feels tired and lethargic and has general malaise also takes blood thinners. Patient states that she has a blockage in her left leg and has been on Xarelto for some time for this. She describes his stools as very maroon-colored. Denies any constipation, diarrhea or any other associated symptoms. Day of Onset: November 20, 2024 Medication Reconciliation Allergies: Coded Allergies: No Known Allergies (Unverified , 09/05/24) Scheduled Atorvastatin Calcium (Atorvastatin Calcium), 1 TAB PO DAILY, (Reported) Calcium Carbonate/Vitamin D3 (Calcium 500 + D Tablet), 1 TAB PO Q12H, (Reported) Cilostazol (Cilostazol), 1 TAB PO BID, (Reported) Clindamycin HCl (Clindamycin HCl), 1 TAB PO Q6H Dapagliflozin Propanediol (Farxiga), 1 TAB PO DAILY, (Reported) Gabapentin (Neurontin), 600 MG PO BID, (Reported) Insulin Aspart (Insulin Aspart Flexpen), 8 UNITS SQ TID, (Reported) Insulin Glargine,Hum.rec.anlog (Basaglar Kwikpen U-100), 18 UNITS SQ HS, (Reported) Lisinopril (Lisinopril), 1 TAB PO DAILY, (Reported) Magnesium Oxide (Magnesium Oxide), 1 TAB PO DAILY, (Reported) Pantoprazole Sodium (Pantoprazole Sodium), 1 TAB PO DAILY, (Reported) Pantoprazole Sodium (PROTONIX tablet), 1 TAB PO DAILY Pantoprazole Sodium (Protonix), 1 TAB PO DAILY Rivaroxaban (Xarelto), 1 TAB PO DAILY, (Reported) Durable Medical Equipment Blood-Glucose Meter (Blood Glucose Meter), [facility], (DME) Blood-Glucose Meter (Blood Glucose Meter), [facility], (DME) Past Medical History Past Medical History: Peripheral Neuropathy, Coronary Artery Disease, High Cholesterol, Hypertension, Vascular Disease, GERD, Chronic Kidney Disease, UTI, Diabetes, Deep Vein Thrombosis Past Surgical History: appendectomy, cholecystectomy, coronary bypass surgery, hysterectomy, orthopedic surgeries, other Patient History: Patient reports no known family medical history. Alcohol Use: None Drug Use: none Lives with: Spouse Lives In: Home Occupation: unemployed, disabled Physical Exam Vital Signs: Temperature: 98.9, Heart Rate: 98, Respiratory Rate: 18, BP: 108/47, Pulse Oximetry: 98, Weight: 70.910 Oxygen Flow Rate: 0 Physical Exam I have reviewed the triage vitals. CONST: Well developed and well nourished. In no acute distress HENT: Head Atraumatic EYES: Pupils are equal, round and reactive to light. Normal conjunctiva NECK: Normal range of motion. Supple. CARDIO: Normal rate and regular rhythm. No murmurs, rubs, or gallops. S1, S2. PULM/CHEST: No respiratory distress. Lungs clear to auscultation. No wheeze ABD: Soft and nontender. Nondistended. Bowel sounds normal. No guarding. : Exam deferred MSK: No edema. No deformity. NEURO: Alert and oriented to person, place and time. Moving all extremities SKIN: Warm and dry. PSYCH: Normal mood and affect. Good eye contact. Progress Results/Orders Results/Orders Completed Orders - HORTENCIA SMART REVIVAL CLERK Cbc/Diff (11/20/24 14:07) BMP (11/20/24 14:07) Lipase (11/20/24 14:07) CMP (11/20/24 14:07) Type And Screen (11/20/24 14:07) Vital Signs 11/20/24 11/20/24 11/20/24 11/20/24 14:02 15:59 15:59 17:51 Temp 98.9 Pulse 98 72 67 Resp 18 17 16 21 B/P (MAP) 108/47 139/81 (100) 131/71 (91) Pulse Ox 98 100 99 O2 Flow Rate 0 11/20/24 17:52 Pulse 67 Resp 17 B/P (MAP) 131/71 Pulse Ox 99 Laboratory Tests Test 11/20/24 14:29 White Blood Count 4.1 L Red Blood Count 3.07 L Hemoglobin 9.9 L Hematocrit 28.9 L Mean Corpuscular Volume 94.1 Mean Corpuscular Hemoglobin 32.4 H Mean Corpuscular Hemoglobin Concent 34.4 Red Cell Distribution Width 15.0 H Platelet Count 177 Mean Platelet Volume 7.1 L Neutrophils (%) (Auto) 58.7 Lymphocytes (%) (Auto) 32.9 Monocytes (%) (Auto) 6.2 Eosinophils (%) (Auto) 1.2 Basophils (%) (Auto) 1.0 Neutrophils # (Auto) 2.4 Lymphocytes # (Auto) 1.4 Monocytes # (Auto) 0.3 Eosinophils # (Auto) 0.1 Basophils # (Auto) 0.0 CBC Comment Prothrombin Time 12.1 H INR International Normalized Ratio 1.2 Activated Partial Thromboplast Time 29 Coagulation Comments Sodium Level 140 Potassium Level 4.1 Chloride Level 108 H Carbon Dioxide Level 27.1 Anion Gap 5 L Blood Urea Nitrogen 22 H Creatinine 1.40 H Estimated GFR/1.73 m2 38 BUN/Creatinine Ratio 15.7 Glucose Level 266 H Calcium Level 9.4 Total Bilirubin 0.4 Aspartate Amino Transf (AST/SGOT) 15 Alanine Aminotransferase (ALT/SGPT) 22 Alkaline Phosphatase 101 Total Protein 6.6 Albumin 3.2 L Globulin 3.4 Albumin/Globulin Ratio 0.9 L Lipase 33 Chemistry Comments EKG/XRAY/CT/US/VASC/MRI Chest X-Ray : Additional Comments CHEST RADIOGRAPH Indication: SOB Technique: Single frontal view of the chest was obtained Comparison: DI CHEST,SINGLE VIEW on DOS: 09/05/24, CHEST,SINGLE VIEW on DOS: 06/06/22, CHEST,SINGLE VIEW on DOS: 09/04/21, CHEST,SINGLE VIEW on DOS: 09/04/21, BIOPSY ANGIO (A) on DOS: 09/04/21 FINDINGS: Lines and Tubes: None Lungs: No focal consolidation. Pleura: No effusion. No pneumothorax. Cardiomediastinal contours: Cardiac silhouette is within the limits of normal with median sternotomy with cardiac revascularization procedure Bones: No acute osseous abnormality. IMPRESSION: 1. Status post median sternotomy with cardiac revascularization procedure 2. No evidence of airspace consolidation or pulmonary venous congestion : Impression Exam: CT CT ABDOMEN PELVIS History: abdominal bloating Comparison Study: CT CTA ABDOMEN PELVIS on DOS: 04/23/24, CT CHEST ABDOMEN PELVIS on DOS: 06/06/22 Technique: Multidetector spiral CT of the abdomen and pelvis was performed from lung bases to pubic symphysis. 100 cc of intravenous contrast was administered during this examination. Portal venous imaging was obtained. Axial, coronal and sagittal multiplanar reformats were performed by the technologist on a separate workstation. Radiation Dose : CTDI volume is 18.97 mGy. Dose-length product is 1004.91 mGy*cm Findings: Lung Bases: No acute or significant lung base finding. Normal heart size. No pleural or pericardial effusion. There is a moderate size hiatal hernia. Liver: The liver is normal in size. No focal lesions. Normal hepatic vascular enhancement. Gallbladder and Biliary Tree: The gallbladder is surgically absent. Spleen: Unremarkable Pancreas: The pancreas is normal in appearance without focal lesions or abnormal enhancement. Adrenal Glands: Unremarkable Kidneys: Kidneys demonstrate normal symmetric enhancement without focal lesions, or hydronephrosis. Both kidneys have nonobstructive calculi. Bladder: Unremarkable Bowel: The stomach is grossly normal in appearance. Small bowel and colon are normal in caliber and distribution. The appendix is not visualized; however, no secondary findings of acute appendicitis identified. Ascites: Absent Lymphadenopathy: No mesenteric, retroperitoneal or periportal lymphadenopathy. Abdominal Wall and Mesentery: Unremarkable. In the right anterior abdominal wall there is a calcified ovoid lesion which was seen before and appears to be unchanged. Vasculature: Diffuse calcification seen of all the visceral vasculature and renal arteries, abdominal aorta and iliac vessels. The visualized abdominal aorta is normal in size and caliber. Abdominal and pelvic vessels demonstrate normal enhancement. Pelvic Organs: Unremarkable Musculoskeletal: No aggressive focal bony lesions, acute fractures or dislocation. Multiple surgical clips seen in the left inguinal region which is giving off of metallic artifact. Adjacent to the left iliac bone there is a calcified lesion with soft tissue in the center measuring 9.0 x 4.4 cm. This was seen on the prior CT and appears to be unchanged. This could be possibly a calcified hematoma. The previously seen seroma is not seen in the present study. IMPRESSION: 1. No acute abdominal or pelvic finding. 2. Both kidneys have nonobstructive calculi. 3. Moderate size hiatal hernia. 4. Near the left iliac ala there is calcified periphery with soft tissue measuring 9.0 x 4.4 cm. This was seen before and appears to be unchanged possibly a calcified hematoma 5. There is also in the anterior subcutaneous calcification which was seen before and appears to be unchanged Medical Decision Making Findings Evaluated patient for GI bleed. Advised her to follow up in the outpatient setting for further evaluation she does not require an emergent endoscopy or colonoscopy Diff Dx GI Bleed:Consideration: Include: AE fistula, Angiodysplasia, Bleeding diathesis, Blood loss anemia, Carcinoma, Diverticulosis, Diverticulitis, Esophageal varicies, Esophagitis, Gastritis, Gastroenteritis, Inflammatory BD, Cintia-Morton syndrome, Meckel's diverticulum, PUD, Other Additional Comments 64-year-old female presenting with maroon-colored melena type stools. Her lab workup here is unremarkable. Patient is chronically anemic and her hemoglobin today is 9.9. Based on her previous values however this is at her baseline. Furthermore the patient is not symptomatic. Her vitals are normal and she is not dizzy nor is she overly fatigued to short of breath. The patient may have a very slow upper GI bleed but at this point in time there is no urgent indication for endoscopy. I will start the patient on Protonix daily and advised her that she needs to follow up closely with her primary care physician. Additionally she needs to follow up with GI and arrange for a endoscopy and also colonoscopy in the near future. I advised the patient that should she started becoming symptomatic she should return immediately to the emergency department. Departure Disposition: 01 HOME / SELF CARE / HOMELESS Impression: Primary Impression: Melena Additional Impression Text Patient needs urgent referral to Gastroenterology. Condition: Stable Discharge Instructions: Bloody Stools Additional Instructions: Take the medication as prescribed. Monitor your symptoms. Should they worsen and you develop lightheadedness, shortness of breath, chest pain please return immediately to the emergency department. You need follow up with Gastroenterology in order to have a endoscopy and colonoscopy done very soon. I have made a referral and please follow up with GI specialist as well as your primary care physician within the next 1-2 weeks. Referrals: NO PRIMARY CARE PROVIDER (PCP) JUNAID GARCIA MD Prescriptions Pantoprazole Sodium (Protonix) 20 Mg Tablet. 1 TAB PO DAILY for 30 Days, #30 TAB 0 Refills Prov: AVTAR ESPINOZA MD 11/20/24 Pantoprazole Sodium (PROTONIX tablet) 40 Mg Tablet. 1 TAB PO DAILY for 30 Days, #30 TAB 0 Refills Prov: AVTAR ESPINOZA MD 11/20/24 Signature Scribe Signature: 1 Attestation: The note accurately reflects work and decisions made by me.Hortencia Reyes NP 11/20/24 23:46 1 HORTENCIA SMART NP November 20, 2024 14:11 AVTAR ESPINOZA MD November 20, 2024 15:33
[2024-11-20 14:51] LABS: EOSINOPHILS # (AUTO) 0.1 X10'3 (0-0.9); MEAN PLATELET VOLUME 7.1 FL (7.4-10.4); MONOCYTES # (AUTO) 0.3 X10'3 (0-0.9)
[2024-11-20 14:56] LABS: EOSINOPHILS % (AUTO) 1.2 % (0-6); HEMATOCRIT 28.9 % (35.0-45.0); HEMOGLOBIN 9.9 g/dl (12.0-16.0); LYMPHOCYTES # (AUTO) 1.4 X10'3 (1.1-4.8); LYMPHOCYTES % (AUTO) 32.9 % (21-51); MEAN CORPUSCULAR HEMOGLOBIN 32.4 PG (27.0-31.0); MEAN CORPUSCULAR HGB CONC 34.4 g/dL (33.0-36.5); MEAN CORPUSCULAR VOLUME 94.1 FL (78-98); MONOCYTES % (AUTO) 6.2 % (2-12); NEUTROPHILS # (AUTO) 2.4 X10'3 (1.8-7.7); NEUTROPHILS % (AUTO) 58.7 % (42-75); PLATELET COUNT 177 X10'3 (140-440); RED BLOOD COUNT 3.07 X10'6 (4.20-5.60); WHITE BLOOD COUNT 4.1 X10'3 (4.5-11.0)
[2024-11-20 15:08] LABS: ALANINE AMINOTRANSFERASE 22 U/L (12-78); ALBUMIN 3.2 G/DL (3.4-5.0); ALBUMIN/GLOBULIN RATIO 0.9 (1.1-1.5); ALKALINE PHOSPHATASE 101 IU/L (46-116); ANION GAP 5 (8-16); ASPARTATE AMINO TRANSFERASE 15 U/L (10-37); BILIRUBIN,TOTAL 0.4 MG/DL (0.1-1.0); BLOOD UREA NITROGEN 22 MG/DL (7-18); BUN/CREATININE RATIO 15.7 (10.0-20.0); CALCIUM 9.4 MG/DL (8.5-10.1); CHLORIDE 108 MMOL/L (99-107); GLUCOSE 266 MG/DL (70-104); LIPASE 33 U/L (16-77); POTASSIUM 4.1 MMOL/L (3.5-5.1); SODIUM 140 MMOL/L (135-145); TOTAL CARBON DIOXIDE 27.1 MMOL/L (24-32); TOTAL PROTEIN 6.6 G/DL (6.4-8.2); eCRCL 35 ML/MIN; eGFR 38 ML/MIN
[2024-11-20 16:01] LABS: APTT 29 SECONDS (22-32); INR 1.2 INR; PROTHROMBIN TIME 12.1 SECONDS (9.0-12.0)
--- NOTE | 2024-11-20 16:09 | RADIOLOGY REPORT ---
Exam: CT CT ABDOMEN PELVIS History: abdominal bloating Comparison Study: CT CTA ABDOMEN PELVIS on DOS: 04/23/24, CT CHEST ABDOMEN PELVIS on DOS: 06/06/22 Technique: Multidetector spiral CT of the abdomen and pelvis was performed from lung bases to pubic s ymphysis. 100 cc of intravenous contrast was administered during this examination. Portal venous i maging was obtained. Axial, coronal and sagittal multiplanar reformats were performed by the technol ogist on a separate workstation. Radiation Dose : CTDI volume is 18.97 mGy. Dose-length product is 1004.91 mGy*cm Findings: Lung Bases: No acute or significant lung base finding. Normal heart size. No pleural or pericardial effusion. There is a moderate size hiatal hernia. Liver: The liver is normal in size. No focal lesions. Normal hepatic vascular enhancement. Gallbladder and Biliary Tree: The gallbladder is surgically absent. Spleen: Unremarkable Pancreas: The pancreas is normal in appearance without focal lesions or abnormal enhancement. Adrenal Glands: Unremarkable Kidneys: Kidneys demonstrate normal symmetric enhancement without focal lesions, or hydronephrosis. Both kidneys have nonobstructive calculi. Bladder: Unremarkable Bowel: The stomach is grossly normal in appearance. Small bowel and colon are normal in caliber and d istribution. The appendix is not visualized; however, no secondary findings of acute appendicitis id entified. Ascites: Absent Lymphadenopathy: No mesenteric, retroperitoneal or periportal lymphadenopathy. Abdominal Wall and Mesentery: Unremarkable. In the right anterior abdominal wall there is a calcified ovoid lesion which was seen before and appears to be unchanged. Vasculature: Diffuse calcification seen of all the visceral vasculature and renal arteries, abdominal aorta and iliac vessels. The visualized abdominal aorta is normal in size and caliber. Abdominal an d pelvic vessels demonstrate normal enhancement. Pelvic Organs: Unremarkable Musculoskeletal: No aggressive focal bony lesions, acute fractures or dislocation. Multiple surgical clips seen in the left inguinal region which is giving off of metallic artifact. Adjacent to the left iliac bone there is a calcified lesion with soft tissue in the center measuring 9.0 x 4.4 cm. This was seen on the prior CT and appears to be unchanged. This could be possibly a bisi cified hematoma. The previously seen seroma is not seen in the present study. IMPRESSION: 1. No acute abdominal or pelvic finding. 2. Both kidneys have nonobstructive calculi. 3. Moderate size hiatal hernia. 4. Near the left iliac ala there is calcified periphery with soft tissue measuring 9.0 x 4.4 cm. This was seen before and appears to be unchanged possibly a calcified hematoma 5. There is also in the anterior subcutaneous calcification which was seen before and appears to be u nchanged
--- NOTE | 2024-11-20 16:13 | RADIOLOGY REPORT ---
CHEST RADIOGRAPH Indication: SOB Technique: Single frontal view of the chest was obtained Comparison: DI CHEST,SINGLE VIEW on DOS: 09/05/24, CHEST,SINGLE VIEW on DOS: 06/06/22, CHEST,SINGLE EW on DOS: 09/04/21, CHEST,SINGLE VIEW on DOS: 09/04/21, BIOPSY ANGIO (A) on DOS: 09/04/21 FINDINGS: Lines and Tubes: None Lungs: No focal consolidation. Pleura: No effusion. No pneumothorax. Cardiomediastinal contours: Cardiac silhouette is within the limits of normal with median sternotomy with cardiac revascularization procedure Bones: No acute osseous abnormality. IMPRESSION: 1. Status post median sternotomy with cardiac revascularization procedure 2. No evidence of airspace consolidation or pulmonary venous congestion
[2024-11-20] MEDS ORDERED: PANT-47 PO (17:25)
[2024-11-20] MEDS ORDERED: PANT20TA2 PO (17:51)
[2024-11-20 17:52] VITALS: BP 131/71; PULSE 67; RESP 17; O2SAT 99
== END 2024-11-20 18:08 | disposition home or self-care (01) ==
LOC: ER 13:53
DX: K92.1 Melena (principal); I12.9 Hypertensive chronic kidney disease with stage 1 through stage 4 chronic kidney disease, or unspecified chronic kidney disease; E11.22 Type 2 diabetes mellitus with diabetic chronic kidney disease; N18.9 Chronic kidney disease, unspecified; E11.42 Type 2 diabetes mellitus with diabetic polyneuropathy; E11.59 Type 2 diabetes mellitus with other circulatory complications; E78.00 Pure hypercholesterolemia, unspecified; I25.10 Atherosclerotic heart disease of native coronary artery without angina pectoris; Z90.49 Acquired absence of other specified parts of digestive tract; Z90.710 Acquired absence of both cervix and uterus; Z95.1 Presence of aortocoronary bypass graft
CPT/HCPCS: 36415; 71045; 74176; 80053; 83690; 85025; 85610; 85730; 86885; 86900; 86901; 99284

== ENCOUNTER 2025-02-04 11:29 | Emergency (ER) | payer MEDICARE, MEDICAID ==
[~2025-02-04] VITALS: Ht 165.1 cm; Wt 73.0 kg
[~2025-02-04 11:29] MED LIST changes: +PANT-47 PO; +PANT20TA2 PO
[2025-02-04 12:08] LABS: MEAN PLATELET VOLUME 7.1 FL (7.4-10.4); RED CELL DISTRIBUTION WIDTH 15.3 % (11.5-14.5)
[2025-02-04 12:15] LABS: CREATININE 1.32 MG/DL (0.40-0.90); TOTAL CARBON DIOXIDE 29.1 MMOL/L (24-32); eCRCL 39 ML/MIN; eGFR 41 ML/MIN
[2025-02-04 12:18] LABS: INR 1.1 INR
--- NOTE | 2025-02-04 12:19 | ELECTROCARDIOGRAPH REPORT ---
[facility] Test Date: 2025-02-04 Test Time: 12:17:56 Pat Name: BRAXTON HOFFMAN Department: [facility] Patient ID: [facility]-[id number] Room: Gender: F Radiator Specialist: : [id number] Requested By: HORTENCIA SMART Order Number: [id number] Reading MD: Measurements Intervals [place] Rate: 71 P: -6 DE: 142 QRS: 89 QRSD: 100 T: 23 QT: 370 QTc: 403 Interpretive Statements Sinus rhythm Atrial premature complex Borderline right axis deviation Borderline ST elevation, lateral leads Please click the below link to view image of tracing.
--- NOTE | 2025-02-04 15:26 | Physician Documentation ---
History of Present Illness ~ General Chief Complaint: Abnormal Lab(s) Stated Complaint: "I NEED A BLOOD TRANSFUSION" Time Seen by MD: 14:24 Primary Medical Doctor: Erasto Kenny MD Mode of Arrival: POV, Ambulatory History of Present Illness Initial Comments The patient is seen today with complaints of needing a blood transfusion. P china states that to was just a clinic earlier today and had a fingerstick hemoglobin that was around seven and was told to come here for a blood transfusion. Patient currently denies any chest pain or shortness of breath or abdominal pain or nausea, vomiting, diarrhea or confusion currently. Patient states that she was feeling a little lightheaded earlier today but denies any c urrent lightheadedness. She has no other concern or complaint at this time. In states she wants to go home. Medication Reconciliation Allergies: Coded Allergies: No Known Allergies (Unverified , 02/04/25) Scheduled Atorvastatin Calcium (Atorvastatin Calcium), 1 TAB PO DAILY, (Reported) Calcium Carbonate/Vitamin D3 (Calcium 500 + D Tablet), 1 TAB PO Q12H, (Reported) Cilostazol (Cilostazol), 1 TAB PO BID, (Reported) Clindamycin HCl (Clindamycin HCl), 1 TAB PO Q6H Dapagliflozin Propanediol (Farxiga), 1 TAB PO DAILY, (Reported) Gabapentin (Neurontin), 600 MG PO BID, (Reported) Insulin Aspart (Insulin Aspart Flexpen), 8 UNITS SQ TID, (Reported) Insulin Glargine,Hum.rec.anlog (Basaglar Kwikpen U-100), 18 UNITS SQ HS, (Re ported) Lisinopril (Lisinopril), 1 TAB PO DAILY, (Reported) Magnesium Oxide (Magnesium Oxide), 1 TAB PO DAILY, (Reported) Pantoprazole Sodium (Pantoprazole Sodium), 1 TAB PO DAILY, (Reported) Pantoprazole Sodium (PROTONIX tablet), 1 TAB PO DAILY Pantoprazole Sodium (Protonix), 1 TAB PO DAILY Rivaroxaban (Xarelto), 1 TAB PO DAILY, (Reported) Durable Medical Equipment Blood-Glucose Meter (Blood Glucose Meter), [facility], (DME) Blood-Glucose Meter (Blood Glucose Meter), [facility], (DME) Past Medical History Past Medical History: Peripheral Neuropathy, Coronary Artery Disease, High Cholesterol, Hypertension, Vascular Disease, GERD, Chronic Kidney Disease, UTI, Diabetes, Deep Vein Thrombosis Past Surgical History: appendectomy, cholecystectomy, coronary bypass surgery, hysterectomy, orthopedic surgeries, other Patient History: Patient reports no known family medical history. Alcohol Use: None Drug Use: none Lives with: Spouse Lives In: Home Occupation: unemployed, disabled Review of Systems Constitutional: Denies: chills, fever, weakness Eyes: Denies: pain, blurred vision ENT: Denies: ear pain, nose pain, throat pain, mouth pain Respiratory: Denies: cough, shortness of breath Cardiovascular: Denies: chest pain, palpitations Gastrointestinal: Denies: abdominal pain, nausea, vomiting Genitourinary: Denies: burning, dysuria Female Genitalia: Denies: vaginal discharge, pelvic pain Neurological: Denies: headache, dizziness Musculoskeletal: Denies: pain, swelling Integumentary: Denies: rash, lesions Allergic/Immunologic: Denies: hives, itching Hematologic/Lymphatic: Denies: no symptoms reported Psychiatric: Denies: depression, anxiety Physical Exam Physical Exam Vital Signs: Temperature: 98.5, Source: Oral, Heart Rate: 71, Respiratory Rate: 14, BP: 126/69, Pulse Oximetry: 99, Weight: 73.000 Physical Exam General: Awake and Alert, no acute distress. HEENT: Conjunctiva pink, Sclera clear, Mucus Membranes moist. Neck: Supple without masses and tenderness. Resp: Unlabored. Lungs clear to auscultation bilaterally. Heart: Regular Rate and rhythm, normal S1 and S2 without murmur, rub or gallop. Abdomen: Soft and non tender no organomegaly Extremities: No cyanosis,clubbing or edema. Skin: Warm and Dry. Progress Results/Orders Results/Orders Vital Signs 02/04/25 02/04/25 11:36 14:44 Temp 98.5 Pulse 71 Resp 18 14 B/P (MAP) 126/69 Pulse Ox 99 Laboratory Tests Test 02/04/25 11:54 White Blood Count 4.1 L Red Blood Count 3.79 L Hemoglobin 12.3 Hematocrit 36.8 Mean Corpuscular Volume 97.2 Mean Corpuscular Hemoglobin 32.4 H Mean Corpuscular Hemoglobin Concent 33.4 Red Cell Distribution Width 15.3 H Platelet Count 169 Mean Platelet Volume 7.1 L Neutrophils (%) (Auto) 64.4 Lymphocytes (%) (Auto) 28.4 Monocytes (%) (Auto) 5.5 Eosinophils (%) (Auto) 1.3 Basophils (%) (Auto) 0.4 Neutrophils # (Auto) 2.6 Lymphocytes # (Auto) 1.2 Monocytes # (Auto) 0.2 Eosinophils # (Auto) 0.1 Basophils # (Auto) 0.0 CBC Comment Prothrombin Time 11.6 INR International Normalized Ratio 1.1 Coagulation Comments Sodium Level 140 Potassium Level 4.4 Chloride Level 104 Carbon Dioxide Level 29.1 Anion Gap 7 L Blood Urea Nitrogen 17 Creatinine 1.32 H Estimated GFR/1.73 m2 41 BUN/Creatinine Ratio 12.9 Glucose Level 161 H Calcium Level 10.2 H Albumin 3.6 Chemistry Comments EKG/XRAY/CT/US/VASC/MRI EKG : Additional Comment EKG interpreted by myself today shows normal sinus rhythm, regular rate at 71 beats per minute, no axis deviation. No sign of ST segment elevation. Medical Decision Making Findings The patient is seen today with complaints of needing a blood transfusion. Patient states that to was just a clinic earlier today and had a fingerstick hemoglobin that was around seven and was told to come here for a blood transfusion. Patient currently denies any chest pain or shortness of breath or abdominal pain or nausea, vomiting, diarrhea or confusion currently. Patient states that she was feeling a little lightheaded earlier today but denies any current lightheadedness. She has no other concern or complaint at this time. In states she wants to go home. Patient did have blood work done today in the ear that showed no sign of significant anemia with a normal hemoglobin over 12 and normal hematocrit level. Patient voiced understanding and will follow up with her PCP and return to the ED with any worsening, concerning or changing symptoms. Patient will continue iron supplementation and her medications as currently prescribed. Departure Disposition: HOME / SELF CARE / HOMELESS Impression: Primary Impression: Abnormal laboratory test result Condition: Improved Discharge Instructions: Iron Deficiency Anemia, Adult, [id number] Additional Instructions: Patient did have blood work done today in the ear that showed no sign of significant anemia with a normal hemoglobin over 12 and normal hematocrit level. Patient voiced understanding and will follow up with her PCP and return to the ED with any worsening, concerning or changing symptoms. Patient will continue iron supplementation and her medications as currently prescribed. Referrals: NO PRIMARY CARE PROVIDER (PCP) Additional Comment Additional Comment Patient declined admission today and states he wants to go home. Signature Scribe Signature: No scribe Attestation: No scribe VIVIANA GALLEGO PAC Feb 04, 2025 15:26
[2025-02-04 16:02] VITALS: BP 128/70; PULSE 75; RESP 16; TEMP 98.5; O2SAT 100
== END 2025-02-04 15:58 | disposition home or self-care (01) ==
LOC: ER 11:29
DX: R79.9 Abnormal finding of blood chemistry, unspecified (principal); R42 Dizziness and giddiness; I12.9 Hypertensive chronic kidney disease with stage 1 through stage 4 chronic kidney disease, or unspecified chronic kidney disease; E11.42 Type 2 diabetes mellitus with diabetic polyneuropathy; E11.22 Type 2 diabetes mellitus with diabetic chronic kidney disease; N18.9 Chronic kidney disease, unspecified; K21.9 Gastro-esophageal reflux disease without esophagitis; I25.10 Atherosclerotic heart disease of native coronary artery without angina pectoris; E78.00 Pure hypercholesterolemia, unspecified; Z86.718 Personal history of other venous thrombosis and embolism; Z95.1 Presence of aortocoronary bypass graft; Z90.710 Acquired absence of both cervix and uterus; Z90.49 Acquired absence of other specified parts of digestive tract; Z79.899 Other long term (current) drug therapy; Z56.0 Unemployment, unspecified
CPT/HCPCS: 36415; 80048; 85025; 85610; 86885; 86900; 86901; 93005; 99284; J7030